=== PATIENT | female | born 1995 | race Two or more races ===

== ENCOUNTER 2021-02-14 10:28 | Emergency (ER) | payer OTHER ==
[~2021-02-14] VITALS: Ht 157.5 cm; Wt 65.8 kg
[2021-02-14] MEDS ORDERED: PRENATABS RX T1 EACH PO (10:47)
== END 2021-02-14 17:27 | disposition home or self-care (01) ==
LOC: ER 10:28
DX: J06.9 Acute upper respiratory infection, unspecified (principal); J32.8 Other chronic sinusitis; Z20.822 Contact with and (suspected) exposure to COVID-19

== ENCOUNTER 2021-06-29 16:35 | Outpatient (CLI) | payer OTHER ==
[~2021-06-29 16:35] MED LIST: PRENATABS RX T1 EACH PO
== END 2021-06-30 10:30 | disposition home or self-care (01) ==
LOC: OBS/DEL 16:35
PROVIDERS: ATTEND Obstetrics & Gynecology
DX: O23.43 Unspecified infection of urinary tract in pregnancy, third trimester (principal); Z3A.36 36 weeks gestation of pregnancy

== ENCOUNTER 2021-07-18 07:01 | Outpatient (CLI) | payer OTHER | END 2021-07-18 10:28 | disposition home or self-care (01) | LOC: NST 07:01 | PROVIDERS: ATTEND Obstetrics & Gynecology | DX: Z34.03 Encounter for supervision of normal first pregnancy, third trimester (principal) ==

== ENCOUNTER 2021-07-24 07:41 | Inpatient (IN) | payer OTHER ==
[~2021-07-24] VITALS: Ht 157.5 cm; Wt 3.2 kg
== END 2021-07-27 13:02 | disposition home or self-care (01) | DRG 788 ==
LOC: LDR 07:41 → OB/GYN 21:25
PROVIDERS: ADMIT Obstetrics & Gynecology; ATTEND Obstetrics & Gynecology
PROC: 10907ZC Drainage of Amniotic Fluid, Therapeutic from Products of Conception, Via Natural or Artificial Opening (ICD-10-PCS; 2021-07-24)
PROC: 3E033VJ Introduction of Other Hormone into Peripheral Vein, Percutaneous Approach (ICD-10-PCS; 2021-07-24)
PROC: 4A1HXFZ Monitoring of Products of Conception, Cardiac Rhythm, External Approach (ICD-10-PCS; 2021-07-24)
PROC: 10D00Z1 Extraction of Products of Conception, Low, Open Approach (ICD-10-PCS; principal; 2021-07-24 20:00)
DX: O62.1 Secondary uterine inertia (principal); O34.83 Maternal care for other abnormalities of pelvic organs, third trimester; O99.892 Other specified diseases and conditions complicating childbirth; N80.9 Endometriosis, unspecified; Z37.0 Single live birth; Z3A.39 39 weeks gestation of pregnancy